=== PATIENT | female | born 1985 | race Two or more races ===

== ENCOUNTER 2020-04-08 16:01 | Emergency (ER) | payer OTHER ==
[~2020-04-08] VITALS: Ht 160 cm; Wt 62.1 kg
[2020-04-08] MEDS ORDERED: PRENATABS RX T1 EACH PO (16:55)
[2020-04-08] MEDS ORDERED: CALCIUM 500 +1 EACH PO (16:55)
== END 2020-04-08 23:15 | disposition home or self-care (01) ==
LOC: ER 16:01
DX: O20.0 Threatened abortion (principal)

== ENCOUNTER 2020-04-11 09:33 | Emergency (ER) | payer OTHER ==
[~2020-04-11] VITALS: Ht 160 cm; Wt 62.6 kg
[~2020-04-11 09:33] MED LIST: CALCIUM 500 +1 EACH PO; PRENATABS RX T1 EACH PO
== END 2020-04-11 16:31 | disposition home or self-care (01) ==
LOC: ER 09:33
DX: O20.8 Other hemorrhage in early pregnancy (principal); E06.3 Autoimmune thyroiditis; Z3A.01 Less than 8 weeks gestation of pregnancy

== ENCOUNTER 2020-04-12 10:11 | Emergency (ER) | payer OTHER ==
[~2020-04-12] VITALS: Ht 160 cm; Wt 62.1 kg
== END 2020-04-12 16:37 | disposition home or self-care (01) ==
LOC: ER 10:11
DX: O02.1 Missed abortion (principal); Z3A.01 Less than 8 weeks gestation of pregnancy; Z03.818 Encounter for observation for suspected exposure to other biological agents ruled out

== ENCOUNTER 2020-09-03 11:17 | Outpatient (CLI) | payer OTHER | END 2020-09-03 11:36 | disposition home or self-care (01) | LOC: NUCLEAR 11:17 | PROVIDERS: ATTEND Obstetrics & Gynecology | DX: I87.2 Venous insufficiency (chronic) (peripheral) (principal) ==

== ENCOUNTER 2020-10-21 13:02 | Inpatient (IN) | payer OTHER ==
[~2020-10-21] VITALS: Ht 160 cm; Wt 74.4 kg
[2020-10-22] MEDS ORDERED: HYDROCORTISONE30 G4 (08:09)
== END 2020-10-23 14:54 | disposition home or self-care (01) | DRG 833 ==
LOC: NST 13:02 → LDR 17:45 → OB/GYN 10-22 10:43
PROVIDERS: ADMIT Obstetrics & Gynecology; ATTEND Obstetrics & Gynecology
PROC: 4A1HXFZ Monitoring of Products of Conception, Cardiac Rhythm, External Approach (ICD-10-PCS; principal; 2020-10-21)
DX: O47.02 False labor before 37 completed weeks of gestation, second trimester (principal); Z3A.23 23 weeks gestation of pregnancy; Z20.822 Contact with and (suspected) exposure to COVID-19

== ENCOUNTER 2020-10-25 14:54 | Outpatient (CLI) | payer OTHER ==
[~2020-10-25 14:54] MED LIST changes: +HYDROCORTISONE30 G4
== END 2020-10-25 15:30 | disposition home or self-care (01) ==
LOC: NST 14:54
PROVIDERS: ATTEND Obstetrics & Gynecology
DX: Z34.83 Encounter for supervision of other normal pregnancy, third trimester (principal)

== ENCOUNTER 2020-11-30 12:06 | Outpatient (CLI) | payer OTHER ==
[2020-11-30] MEDS ORDERED: NIFEDIPINE20 MG PO (13:55)
[2020-11-30] MEDS ORDERED: VITAMIN C1000 MG PO (13:55)
== END 2020-11-30 17:34 | disposition home or self-care (01) ==
LOC: NST 12:06 → OBS/DEL 12:06
PROVIDERS: ATTEND Obstetrics & Gynecology
DX: O26.843 Uterine size-date discrepancy, third trimester (principal); O36.8310 Maternal care for abnormalities of the fetal heart rate or rhythm, first trimester, not applicable or unspecified; O09.523 Supervision of elderly multigravida, third trimester; Z3A.30 30 weeks gestation of pregnancy

== ENCOUNTER 2020-12-10 18:51 | Inpatient (IN) | payer OTHER ==
[~2020-12-10] VITALS: Ht 160 cm; Wt 78.0 kg
[~2020-12-10 18:51] MED LIST changes: +NIFEDIPINE20 MG PO; +VITAMIN C1000 MG PO
[2020-12-13] MEDS ORDERED: CANASA1000 MG RECTAL (07:54)
== END 2020-12-13 11:52 | disposition home or self-care (01) | DRG 832 ==
LOC: LDR 18:51 → OB/GYN 12-12 17:34
PROVIDERS: ADMIT Obstetrics & Gynecology Maternal & Fetal Medicine; ATTEND Obstetrics & Gynecology Maternal & Fetal Medicine
PROC: 4A1HXFZ Monitoring of Products of Conception, Cardiac Rhythm, External Approach (ICD-10-PCS; principal; 2020-12-10)
DX: O47.9 False labor, unspecified (principal); O99.613 Diseases of the digestive system complicating pregnancy, third trimester; K51.80 Other ulcerative colitis without complications; O99.283 Endocrine, nutritional and metabolic diseases complicating pregnancy, third trimester; E06.3 Autoimmune thyroiditis; Z3A.30 30 weeks gestation of pregnancy; Z20.822 Contact with and (suspected) exposure to COVID-19

== ENCOUNTER 2020-12-16 10:52 | Outpatient (CLI) | payer OTHER ==
[~2020-12-16 10:52] MED LIST changes: +CANASA1000 MG RECTAL
== END 2020-12-16 11:46 | disposition home or self-care (01) ==
LOC: NST 10:52
PROVIDERS: ATTEND Obstetrics & Gynecology Maternal & Fetal Medicine
DX: Z34.83 Encounter for supervision of other normal pregnancy, third trimester (principal)

== ENCOUNTER → 2020-12-31 | Outpatient (CLI) | payer OTHER | END | disposition home or self-care (01) | LOC: NST 14:56 | PROVIDERS: ATTEND Obstetrics & Gynecology | DX: Z34.83 Encounter for supervision of other normal pregnancy, third trimester (principal) ==

== ENCOUNTER 2021-01-14 22:38 | Outpatient (CLI) | payer OTHER | END 2021-01-15 22:33 | disposition home or self-care (01) | LOC: OBS/DEL 22:38 | PROVIDERS: ATTEND Obstetrics & Gynecology | DX: O26.893 Other specified pregnancy related conditions, third trimester (principal); R10.2 Pelvic and perineal pain; Z3A.35 35 weeks gestation of pregnancy ==

== ENCOUNTER 2021-01-25 11:14 | Outpatient (CLI) | payer OTHER | END 2021-01-25 11:46 | disposition home or self-care (01) | LOC: NST 11:14 | PROVIDERS: ATTEND Obstetrics & Gynecology | DX: Z34.83 Encounter for supervision of other normal pregnancy, third trimester (principal) ==

== ENCOUNTER → 2021-02-06 | Outpatient (CLI) | payer OTHER | END | disposition home or self-care (01) | LOC: NST 22:25 | PROVIDERS: ATTEND Obstetrics & Gynecology | DX: Z34.83 Encounter for supervision of other normal pregnancy, third trimester (principal) ==

== ENCOUNTER 2021-02-15 18:10 | Emergency (ER) | payer OTHER ==
[~2021-02-15] VITALS: Ht 160 cm; Wt 76.2 kg
== END 2021-02-16 00:01 ==
LOC: ER 18:10
DX: R03.0 Elevated blood-pressure reading, without diagnosis of hypertension (principal); Z03.818 Encounter for observation for suspected exposure to other biological agents ruled out